=== PATIENT | male | born 1955 | race Caucasian/White ===

== ENCOUNTER 2016-05-18 02:36 | Emergency (ER) | payer BC ==
[2015-11-25 09:53] VITALS: BMI 30.3
[~2016-05-18 02:36] MED LIST: CHOLESTYRAMIN4 G/PK1 PO; COREG25 MG PO; FLUTICASONE PRO16 GM NASAL; NEURONTIN600 MG PO; NUCYNTA50 MG PO; OMEPRAZOLE20 M1 PO; PLAVIX75 MG PO; VERELAN180 MG PO; VITAMIN B-121000 MCG PO; XALATAN 0.0052.5 ML EACH EYE; ZOFRAN ODT4 MG/UDTAB PO
[2016-05-18 03:25] LABS: BASOPHILS 0.1 % (0.0-2.0); EOSINOPHILS 0.1 % (0-7); HEMATOCRIT 49.9 % (42.0-54.0); HEMOGLOBIN 17.3 g/dL (13.5-17.5); IMMATURE GRANULOCYTES 0.3 % (0-5); LYMPHOCYTES 12.3 % (15-50); MCH 30.7 pg (26.0-34.0); MCHC 34.7 g/dL (31.0-37.0); MCV 88.6 fL (80.0-100.0); MEAN PLATELET VOLUME 9.9 fL (7.4-10.4); MONOCYTES 7.2 % (2-11); RBC 5.63 10x6/uL (4.20-6.10); RDW 13.1 % (11.5-14.5)
[2016-05-18 03:26] LABS: PLATELET COUNT 206 10x3/uL (130-400)
[2016-05-18 03:36] LABS: ALBUMIN 4.8 g/dL (3.4-5.0); BILIRUBIN - TOTAL 1.64 mg/dL (0.2-1.3); CALCIUM 10.2 mg/dL (8.5-10.1); CARBON DIOXIDE 27.3 mmol/L (21.0-32.0); CREATININE - SERUM 1.1 mg/dL (0.6-1.3); POTASSIUM - SERUM 4.3 mmol/L (3.5-5.1); PROTEIN - SERUM 8.1 g/dL (6.4-8.2)
== END 2016-05-18 06:05 | disposition home or self-care (01) ==
LOC: D.ER 02:36
PROVIDERS: Family Medicine
DX: R10.13 Epigastric pain (principal)

== ENCOUNTER → 2018-10-31 12:25 | Outpatient (CLI) | payer BC ==
[2015-11-25 09:53] VITALS: BMI 30.3
--- NOTE | 2018-10-31 18:39 | EC ---
PATIENT:MADELINE KAY DATE OF SERVICE: 10/31/18 SEX: M MEDICAL RECORD: [id number] DATE OF : 57 LOCATION:[facility] AGE OF PATIENT: 63 ADMISSION DATE: 10/31/18 REFERRING PHYSICIAN: INTERPRETING PHYSICIAN: DAVID AGUILAR MD ECHOCARDIOGRAM REPORT ECHO CHARGES 4 ECHO COMPLETE Date: 10/31/18 CLINICAL DIAGNOSIS: CAD/PACEMAKER/HTN/MITRAL/TRICU SPID REGURG ECHOCARDIOGRAPHIC MEASUREMENTS (adult normal given) AC root (d.<3.7cm) 3.9 cm LV Septum d (<1.2 cm> 1.4 cm Valve Excursion 1.9 cm LV Septum (systole) 1.9 cm Left Atria (s.<4.0cm> 4.5 cm LVPW d(<1.2cm) 1.5 cm RV (d.<2.3cm) 3.8 cm LVPW (sytole) 1.9 cm LV diastole(<5.6CM) 4.6 cm MV E-F(>70mm/sec) cm LV systole 2.6 cm LVOT Diameter 1.9 cm MV exc.(>10mm) 1.6 cm Est.ejection fraction (50-75%) % DOPPLER: LVIT cm/sec A 64.0 cm/sec E 77.0 cm/sec LA cm/sec RVSP 34 mmHg LVOT 107 cm/sec AOP1/2T m/s Asc. Ao 127 cm/sec RVOT 71 cm/sec RA cm/sec PA 116 cm/sec AV Gradient Peak 6.42 mmHg AV Mean 3.95 mmHg AV Area 2.7 cm MV Gradient Peak 2.70 mmHg MV Mean 0.96 mmHg MV Area cm COMMENTS: Automatic Spooler Operator: Chris BRICEÑO Supervisor Steel Division: Shreya Aguilar TAPE# PACS Pericardial Effusion N DATE OF SERVICE: 10/31/2018 FINDINGS: 1. Left ventricular chamber size is within normal limits. Left ventricular systolic function is normal. Overall ejection fraction is estimated at 60%. 2. Left atrium is enlarged at 4.5 cm. Right atrium and right ventricular chamber sizes are mildly dilated as well. 3. Valvular structures have normal structure and motion. 4. Doppler interrogation reveals trace mitral regurgitation and mild tricuspid regurgitation. No other valvular insufficiency or stenosis. Pulmonary systolic ECHOCARDIOGRAM REPORT [id number] MADELINE KAY pressure is estimated at 34 mmHg. 5. No evidence of pericardial effusion or left ventricular thrombus. TRANSINT:[id number] Voice Confirmation ID: [id number] DOCUMENT ID: [id number] DAVID AGUILAR MD at 1839 CC: [id number] DICTATION DATE: 10/31/18 1607 FILM MASKER: 10/31/18 1819 REG [facility] [address] [id number]
== END | disposition home or self-care (01) ==
LOC: D.HCCARDIO 12:25
PROVIDERS: ATTEND Internal Medicine Interventional Cardiology
DX: I25.10 Atherosclerotic heart disease of native coronary artery without angina pectoris (principal)

== ENCOUNTER 2019-05-18 08:50 | Outpatient (CLI) | payer BC ==
[~2019-05-18] VITALS: Ht 177.8 cm; Wt 100.9 kg
--- NOTE | ~2019-05-18 | HEMODYNAMI ---
PATIENT:MADELINE KAY MEDICAL RECORD: [id number] : 57 LOCATION:[facility] ADMISSION DATE: 05/18/19 Generatedon:05/18/201911:36 Patient name: MADELINE KAY Patient #: [id number] : 1955 Date of study: 05/18/2019 Page: Of Hemodynamic Procedure Report Patient Data Patient Demographics Procedure consent was obtained First Name: MADELINE Gender: Male Last Name: RAHUL : 1955 Middle Initial: D Age: 63 year(s) Patient #: [id number] Race: SSN: [id number] Additional ID: [id number] Contact details Address: [address] [place] [address] [address]IVE State: [place] City: [place] Zip code: [address] Admission Admission Data Admission Date: 05/18/2019 Admission Time: 8:50 Arrival Date: 05/18/2019 Arrival Time: 11:00 Insurance Payor: Private health insurance [facility] #: [id number] Height (in.): 70.08 BSA: 2.19 (m2) Height (cm.): 178 BMI: 31.88 (kg/m2) Weight (lbs.): 222.67 Weight (kg.): 101 Lab Results Lab Result Date: 05/18/2019 Lab Result Time: 0:00 Biochemistry Name Units Result Min Max BUN mg/dl 19 --(----)*- 7 18 Creatinine mg/dl 1 --(--*-)-- 0.6 1.3 CBC Name Units Result Min Max Hemoglobin g/dl 15.1 --(-*--)-- 13.5 17.5 Procedure Procedure Types Cath Procedure Diagnostic Procedure PPM/ICD Permanent Pacer Generator Exg. Sedation Charges Moderate Sedation up to 15 minutes Procedure Description Procedure Date Procedure Date: 05/18/2019 Procedure Start Time: 11:15 Procedure End Time: 11:31 Procedure Staff Name Function Candice Chavarria RT Monitor Marium Maldonado RT Scrub Alcon Baird MD Assisting physician Dragan Aguilar MD Performing Physician Jose Kelsey RN Nurse Procedure Data Cath Procedure Fluoroscopy Diagnostic fluoroscopy Total fluoroscopy Time: 0 time: 0 min min Diagnostic fluoroscopy Total fluoroscopy dose: 0 dose: 0 mGy mGy Contrast Material Contrast Material Type Amount (ml) Isovue 300 0 Estimated blood loss: 5 ml Procedure Complications No complications Procedure Medications Medication Administration Route Dosage Vancomycin I.V.P.B 1 g Vancomycin Topical 1 g Irrigation Lidocaine 1% added to field 20 Fentanyl I.V. 50 mcg Versed I.V. 1 mg Fentanyl I.V. 50 mcg Versed I.V. 1 mg Versed I.V. 1 mg Hemodynamics Rest BSA: 2.19 (m2) HGB: 15.1 (g/dl) O2 Consumption: Estimated: 261.69 (ml/min) O2 Co nsumption indexed: Estimated:119.49 (ml/min/m) Heart Rate: 76 (bpm) Snapshots Pre Cath Intra NCS Post Cath Vital Signs Time Heart Resp SPO2 etCO2 NIBP (mmHg) Rhythm Pain Sedation Rate (ipm) (%) (mmHg) Status Level (bpm) 10:54:59 62 16 97 0 Measuring NSR (Missing) 10(A) 10:56:23 64 16 96 0 Time NSR (Missing) 10(A) Exceeded 11:01:22 73 17 97 0 Measuring NSR (Missing) 10(A) 11:02:46 75 17 96 0 Time NSR (Missing) 10(A) Exceeded 11:05:15 62 17 96 0 110/64(106) NSR (Missing) 10(A) 11:09:21 67 17 96 0 96/65(83) NSR (Missing) 10(A) 11:13:23 64 17 92 0 113/63(100) NSR (Missing) 9(A) 11:17:26 90 16 90 0 104/77(94) NSR (Missing) 9(A) 11:21:26 70 17 86 0 107/73(88) NSR (Missing) 9(A) 11:25:30 64 17 95 0 97/67(82) NSR (Missing) 9(A) 11:29:29 68 16 94 0 113/68(80) NSR (Missing) 9(A) 11:31:36 65 16 89 0 112/73(92) NSR (Missing) 9(A) Medications Time Medication Route Dose Verified Delivered Reason Notes Effectiv eness by by 10:59:30 Vancomycin I.V.P.B 1 g Dragan Kelsey RN 10:59:43 Vancomycin Topical 1 g Dragan Garcia used for Irrigation Lauren Kelsey emergency dispatcher 11:00:05 Lidocaine added 20ml Dragan Garcia for local 1% to vial Lauren Kelsey RN anesthetic field x 2 11:11:57 Fentanyl I.V. 50 Dragan Garcia for mcg Lauren Kelsey RN sedation 11:12:06 Versed I.V. 1 mg Dragan Garcia for Lauren Kelsey RN sedation 11:14:33 Fentanyl I.V. 50 Dragan Garcia for mcg Lauren Kelsey RN sedation 11:14:38 Versed I.V. 1 mg Dragan Garcia for Lauren Kelsey RN sedation 11:17:10 Versed I.V. 1 mg Dragan Garcia for Lauren Kelsey RN sedation Procedure Log Time Note 10:26:30 Informed consent obtained and on chart 10:26:35 Diagnostic Cath Status : Elective 10:27:55 Arrival Date: 05/18/2019 11:00:00 AM 10:28:17 Insurance Payor : Private health insurance 10:41:43 Patient Height : 70.08 inches 10:41:47 Patient Weight : 222.67 lbs 10:42:21 Lab Result : Hemoglobin 15.1 g/dl 10:42:21 Lab Result : Creatinine 1 mg/dl 10:42:21 Lab Result : BUN 19 mg/dl 10:42:32 Marium Maldonado RT(R) sent for patient. Start room use. 10:42:32 Time tracking: Regular hours (M-F 7:00 - 5:00) 10:42:41 Plan of Care:Hemodynamics will remain stable., Cardiac rhythm will remain stable., Comfort level will be maintained., Respiratory function will remain adequate., Patient/ family verbilizes understanding of procedure., Procedure tolerated without complication., Recovers from procedure without complications.. 10:43:19 Patient received from Pre/Post Procedure Room to [facility] 3 Alert and oriented. Tansferred to table in Supine position. 10:43:31 Warm blankets applied, and andreea hugger turned on for patient comfort. 10:43:31 Correct patient and procedure confirmed by team. 10:43:34 ECG and BP/O2 sat monitors applied to patient. 10:53:10 Vital chart was started 10:57:35 Baseline sample Acquired. 10:57:41 Rhythm: sinus rhythm , paced 10:57:42 Full Disclosure recording started 10:57:46 H&P Date Dictated: 05/18/2019 Within 30 days and on chart., H&P Addendum completed by physician on day of procedure. (MUST COMPLETE FOR ALL OUTPATIENTS). 10:57:47 Pre-procedure instructions explained to patient. 10:57:47 Pre-op teaching completed and patient verbalized understanding. 10:57:49 Family in patients room. 10:57:50 Patient NPO since Midnight. 10:58:02 Is the patient allergic to Iodine/contrast media? No. 10:58:02 Was the patient premedicated? Yes 10:59:30 Vancomycin 1 g I.V.P.B was administered by Jose Kelsey RN; ; Verbal order read back and verified. 10:59:43 Vancomycin Irrigation 1 g Topical was administered by Jose Kelsey RN; used for procedure; Verbal order read back and verified. 10:59:59 Is patient on blood thinner?No 11:00:02 Patient diabetic? No. 11:00:05 Lidocaine 1% 20ml vial x 2 added to field was administered by Jose Kelsey RN; for local anesthetic; Verbal order read back and verified. 11:00:05 Snore? Yes 11:00:20 Sleep apnea? No 11:00:22 Deviated septum? No 11:00:23 Opens mouth fully? Yes 11:00:24 Sticks out tongue? Yes 11:00:27 Airway obstruction? No ? 11:00:31 Dentures? No ? 11:00:34 Pre procedure: right dorsailis pedis pulse 2+ Normal; easily identifiable; not easily obliterated 11:00:38 Pre procedure: left dorsailis pedis pulse 2+ Normal; easily identifiable; not easily obliterated 11:00:40 Patient pain scale 0/10 ?. 11:00:47 IV patent on arrival in left forearm with 0.9% NaCl at [facility]. 11:00:58 Lab results completed and on chart. 11:01:08 Left chest area was prepped with chlora-prep and draped in sterile fashion 11:01:12 Alarms reviewed by R. N. 11:01:13 Sharps counted by scrub and verified by R.N. 11:02:[address] Generator [id number] opened to sterile field. 11:05:56 Physician paged 11:11:41 --------ALL STOP TIME OUT------ 11::41 Final Timeout: patient, procedure, and site verified with staff and physician. All members of the team are in agreement. 11:11:50 Left chest site verified by team. 11:11:54 Fire Safety Assessment: A--An alcohol-based skin anteseptic being used preoperatively., C--Open oxygen or nitrous oxide is being used., D--An ESU, laser, or fiber-optic light is being used. 11:11:57 Fentanyl 50 mcg I.V. was administered by Jose Kelsey RN; for sedation; Verbal order read back and verified. 11:11:57 Physical assessment completed. ASA score P 2 - A patient with mild systemic disease as per Dragan Aguilar MD. 11:12:03 Sedation plan: IV Moderate Sedation Medication:Versed, Fentanyl 11:12:06 Versed 1 mg I.V. was administered by Jose Kelsey RN; for sedation; Verbal order read back and verified. 11:12:16 Use device set INGE PPM 11:12:17 2-0 Ticron Multipack ([id number]) opened to sterile field. 11:12:19 3-0 Vicryl Single Pack [id number] opened to sterile field. 11:12:20 5-0 Monocryl PS2 [id number] opened to sterile field. 11:12:20 Cautery Tip Seaweed Harvester opened to sterile field. 11:12:21 Cautery Pushbutton Pencil opened to sterile field. 11:12:21 Mepilex Dressing ([id number]) opened to sterile field. 11:12:22 Immobilizer Extra Large opened to sterile field. 11:12:30 Procedure started. 11:14:33 Fentanyl 50 mcg I.V. was administered by Jose Kelsey RN; for sedation; Verbal order read back and verified. 11:14:38 Versed 1 mg I.V. was administered by Jose Kelsey RN; for sedation; Verbal order read back and verified. 11:14:48 Medtronic technical service representative princess best present for procedure. 11:15:01 Pre sharps counted by scrub and verified by RN: Sutures: 7; Sponges: 5; Stick needles: 2; Skin needles: 2; Blade: 1; Cautery: 1 11:15:04 Grounding pad site Left thigh. 11:15:05 Grounding pad site free from injury. 11:15:48 Lidocaine 1% was administered to left subclavicular area by Alcon Baird MD . 11:15:50 Incision made to left subclavicular area. 11:17:10 Versed 1 mg I.V. was administered by Jose Kelsey RN; for sedation; Verbal order read back and verified. 11:17:33 Generator pocket made/opened. 11:20:19 PPM Dual was removed.. 11:20:29 PPM Dual was attached to lead(s) and inserted into pocket. 11:20:38 PPM Dual was inserted subcutaneously to left chest. 11:20:42 Device pocket was irrigated with Vancomycin. 11:20:55 Ventricular lead attachment was completed with 2-0 ticron. 11:21:01 Atrial lead attachment was completed with 2-0 ticron. 11:24:38 Generator was sutured in place with 2-0 ticron. 11:25:04 Subcutaneous closure was completed with 3-0 vicryl plus. 11:26:06 Skin closure was completed with 5-0 monocryl. 11:28:53 Lt Chest incision was dressed with Mepilex dressing. 11:29:03 Parameters-- Generator: Mode: DDDR. Lower Rate: 60bpm. Upper Rate: 130bpm. 11:29:22 Procedure ended.(Physican Out) 11:29:48 Fluoroscopy time 00.00 minutes. 11:29:50 Flurop Dose total: 0 11::50 Fluoroscopy dose: 0 mGy 11::53 Dose Area Product 0 mGy/cm. 11:29:57 Contrast amount:Isovue 300 0ml. 11:30:00 Maximum allowable dose exceeded? No. 11:30:01 Sharps counted by scrub and verified by R.N. 11:30:03 Insertion/operative site no bleeding no hematoma. 11:30:10 Post Procedure Pulses reassessed and unchanged 11:30:13 Post procedure rhythm: unchanged. 11:30:19 Estimated blood loss: 5 ml 11:30:21 Post procedure instruction explained to patient.Patient verbalizes understanding. 11:30:21 Patient needs reinforcement of post procedure teaching. 11:30:32 Patient needs reinforcement of post procedure teaching. 11:30:42 Procedure type changed to Cath procedure, Diagnostic procedure, PPM/ICD, Permanent Pacer Generator Exg., Sedation Charges, Moderate Sedation up to 15 minutes 11:30:44 Procedure and supply charges have been captured, reviewed, submitted and are correct. 11:30:50 Procedure Complication : No complications 11:30:52 Vital chart was stopped 11:30:59 Operative report dictated upon procedure completion. 11:30:59 See physician's report for complete and final results. 11:31:01 Report given to Pre/Post Procedure Room. 11:31:03 Patient transfered to Pre/Post Procedure Room with Stretcher. 11:31:05 Procedure ended. 11:31:05 Full Disclosure recording stopped 11:31:45 Parameters--Ventricular P/R Wave: 7.9mV. Current: ?mA; Threshold: 2.0V; Impedence: 494OHMS. 11:32:11 Parameters--Atrial P/R Wave: 3.6mV. Current: 0.4mA; Threshold: 0.75V; Impedence: 608OHMS. 11:32:48 End room use (Document Last) 11:34:40 End room use (Document Last) 11:35:08 End room use (Document Last) Device Usage Item Name Manufacture Quantity Catalog Hospital Part Current Minima l Lot# / Number Charge Number Stock Stock Serial# Code Medtronic Medtronic 1 [id number] [id number] Exp Generator 08-30-2020 [id number] 2-0 Ticron Ethicon 2 [id number] [id number] 5 Multipack ([id number]) 3-0 Vicryl Ethicon 1 [id number] 5 Single Pack [id number] 5-0 Monocryl Ethicon 1 [id number] [id number] 328400 733732 5 PS2 Y495G Cautery Tip Microtek 1 [id number] 423657 [id number] 5 Seaweed Harvester [employer] Cautery Microtek 1 [id number] 22518 [id number] 5 Pushbutton [employer] Inc[employer] Pencil Mepilex Cardinal 1 [id number] [id number] [id number] [id number] 5 Dressing Health ([id number]) Immobilizer Cardinal 1 [id number] 5 Extra Large Health Signature Audit [place] Stage Time Signature Unsigned Intra-Procedure 05/18/2019 Marium Maldonado 11:34:40 AM RT(R) Intra-Procedure 05/18/2019 Dragan Aguilar 11:36:07 AM [id number] [place] [address]
[2019-05-18] MEDS ORDERED: MOBIC7.5 MG PO (09:12)
[2019-05-18 09:26] VITALS: BP 121/70; Ht 177.8 cm; Wt 100.9 kg
[2019-05-18 09:31] LABS: HEMATOCRIT 43.9 % (42.0-54.0); HEMOGLOBIN 15.1 g/dL (13.5-17.5); MCH 31.3 pg (26.0-34.0); MCHC 34.4 g/dL (31.0-37.0); MCV 91.1 fL (80.0-100.0); MEAN PLATELET VOLUME 9.9 fL (7.4-10.4); RBC 4.82 10x6/uL (4.20-6.10); WBC 6.6 10x3/uL (4.8-10.8)
[2019-05-18 09:45] LABS: CALC OSMOLALITY 282 mosm/kg (275-300); CALCIUM 8.1 mg/dL (8.5-10.1); CARBON DIOXIDE 27.7 mmol/L (21.0-32.0); CHLORIDE - SERUM 107 mmol/L (98-107); GLUCOSE 106 mg/dL (74-106); POTASSIUM - SERUM 4.2 mmol/L (3.5-5.1); SODIUM 141 mmol/L (136-145); UREA NITROGEN 19 mg/dL (7-18); eGFR NON AFRICAN AMERICAN 80 mL/min (90-120)
[2019-05-18] MEDS ORDERED: HYDROCODON-ACE1 EAC7 PO (11:31)
--- NOTE | 2019-05-18 11:40 | NUR ---
PATIENT ARRIVED TO ROOM 3, PLACED ON CM. VSS. LEFT UPPER CHEST DRESSING IN PLACE, NO S/S OF BLEEDING OR HEMATOMA.
--- NOTE | 2019-05-18 11:55 | NUR ---
PATIENT AWAKE, SITTING UP IN BED EATING A SANDWICH AND DRINKING SODA PER REQUEST. NO N/V. VSS ON ROOM AIR. LEFT UPPER CHEST DRESSING IS CDI, NO S/S OF BLEEDING. NO C/O PAIN, NUMBNESS, OR TINGLING. PHYSICIAN PREVIOUSLY AT BEDSIDE TO UPDATE PATIENT FAMILY. SPOUSE PRESENT AT BEDSIDE.
--- NOTE | 2019-05-18 12:25 | NUR ---
PATIENT RESTING, SPOUSE PRESENT AT BEDSIDE. VSS ON ROOM AIR. LEFT UPPER CHEST DRESSING IS CDI. VSS ON CM. NO C/O PAIN, NUMBNESS, OR TINGLING.
--- NOTE | 2019-05-18 12:55 | NUR ---
WRITTEN AND VERBAL DISCHARGE INSTRUCTIONS GIVEN TO PATIENT AND SPOUSE, BOTH VOICE UNDERSTANDING. VSS ON ROOM AIR. LEFT UPPER CHEST DRESSING IS CDI, NO S/S OF BLEEDING. NO C/O PAIN, NUMBNESS, OR TINGLING. NO N/V. IV REMOVED. PATIENT DISCONNECTED FROM MONITORS TO GET DRESSED.
--- NOTE | 2019-05-18 13:05 | NUR ---
PATIENT TRANSPORTED VIA WHEELCHAIR TO CAR WITH SPOUSE DRIVING, ALL BELONGINGS WITH PATIENT.
--- NOTE | 2019-05-19 10:39 | OP ---
PATIENT NAME: MADELINE KAY MEDICAL RECORD: [id number] :57 LOCATION:[facility] ADMISSION DATE: SURGEON: COURTNEY ALCAZAR MD DATE OF OPERATION: 05/18/2019 PREOPERATIVE DIAGNOSES: 1. End-of-life pacemaker generator. 2. Atrial fibrillation. 3. Coronary artery disease. 4. Hypertension. POSTOPERATIVE DIAGNOSES: 1. End-of-life pacemaker generator. 2. Atrial fibrillation. 3. Coronary artery disease. 4. Hypertension. PROCEDURE: Left subclavian vein dual lead pacemaker generator exchange. SURGEON: Courtney Alcazar MD REPORT OF PROCEDURE: The patient's left chest was prepped and draped in sterile fashion. A 20 mL of 1% lidocaine with epinephrine was infused into the surrounding tissues. A previous oblique incision in the left superior lateral chest was opened up using sharp dissection and then electrocautery was used to dissect through the subcutaneous tissues to the pacemaker. There was a single stitch holding it in place and this was excised. The pacemaker generator was eviscerated through the wound. We then disconnected the leads and placed a new pacemaker generator on the indwelling leads. This appeared to be functioning appropriately. We opened up the subcutaneous pouch and reinserted the pacemaker generator. This was sutured to the pectoral fascia using an interrupted 0 Ti-Cron. The wound was irrigated out with antibiotic solution. The subcutaneous tissues were reapproximated with interrupted 3-0 Vicryl and the skin was closed with running subcutaneous 5-0 Monocryl. COMPLICATIONS: None. CONDITION: Stable. ANESTHESIA: Local MAC. BLOOD LOSS: Minimal. TRANSINT:[id number] Voice Confirmation ID: [id number] DOCUMENT ID: [id number] COURTNEY ALCAZAR MD at 1039 CC: DAVID CARROLL [id number] DICTATION DATE: 05/18/19 1134 MILLINERY DEPARTMENT MANAGER: 05/18/19 1405 DEP CLI 05/18/[address] [address]
== END 2019-05-18 13:05 ==
LOC: D.CATH 08:50
PROVIDERS: ATTEND Internal Medicine Interventional Cardiology
DX: I48.0 Paroxysmal atrial fibrillation (principal); I25.10 Atherosclerotic heart disease of native coronary artery without angina pectoris; I10 Essential (primary) hypertension; Z95.0 Presence of cardiac pacemaker; E78.5 Hyperlipidemia, unspecified; I49.5 Sick sinus syndrome; I07.1 Rheumatic tricuspid insufficiency; I34.0 Nonrheumatic mitral (valve) insufficiency; Q05.9 Spina bifida, unspecified